=== PATIENT | female | born 1960 | race Caucasian/White ===

== ENCOUNTER → 2016-07-09 | Outpatient (CLI) | payer BC | END | disposition home or self-care (01) | LOC: GMAB 10:15 | PROVIDERS: ATTEND Family Medicine | DX: Z00.00 Encounter for general adult medical examination without abnormal findings (principal) ==

== ENCOUNTER → 2017-03-26 | Outpatient (CLI) | payer BC ==
--- NOTE | 2017-04-07 16:50 | MAM ---
EXAM DESCRIPTION: 3D Screening BILATERAL : Digital Mammography. CLINICAL HISTORY: 57 years Female SCREENING . No complaints. No family history breast cancer. Postmenopausal. Has taken HRT 5 or more years ago. Benign right breast biopsy. COMPARISON: 2-D digital screening bilateral study 10/03/2013. No prior reports available. TECHNIQUE: Bilateral CC and MLO projection full-field images, 3-D tomosynthesis digital mammographic technique. Also bilateral synthesized CC/ MLO full-field images. CAD not utilized. FINDINGS: The breast parenchymal density pattern is: Scattered areas of fibroglandular density. No skin thickening or nipple retraction small solitary microcalcifications bilaterally. Focal asymmetry versus mass density in the periareolar right breast tissue at the 930 clock position abutting the right nipple. No focal, stellate mass or density, focal asymmetry , and no suspicious microcalcifications left breast. IMPRESSION: BI-RADS CATEGORY: 0 - INCOMPLETE- Need additional imaging evaluation. FOLLOW-UP: Recall for additional imagin-D tomosynthesis full field LM imaging of the right breast and targeted right breast ultrasound of the region of interest.. Written communication concerning the IMPRESSION and Follow-up, will be mailed to the patient and referring health care provider. Electronically signed by: Rio Curran MD 04/07/2017 4:49 PM WELDING SUPERVISOR
== END ==
LOC: MAMMO 09:30
PROVIDERS: ATTEND Obstetrics & Gynecology
DX: Z12.31 Encounter for screening mammogram for malignant neoplasm of breast (principal)

== ENCOUNTER → 2017-04-13 | Outpatient (CLI) | payer BC ==
--- NOTE | 2017-04-13 20:41 | US ---
EXAM DESCRIPTION: Breast,Right: Ultrasound CLINICAL HISTORY: 57 yearsFemaleABN MAMMO. Previous biopsy in the same region. Also previous cyst aspiration. COMPARISON: Digital 3-D tomosynthesis diagnostic RIGHT breast on this visit. Previous screening 3-D tomosynthesis bilateral study, 03/26/2017. TECHNIQUE: Transcutaneous scanning of the right breast utilizing two-dimensional and Doppler modes. Scanning performed by the emotional support teacher and Dr. Curran. FINDINGS: Scanning in the upper outer quadrant of the right nipple. Mostly oval shaped lesion with defined margins with echogenic and hypoechoic components. Margins are also partially lobulated. Predominantly echogenic centrally. Posterior edge shadowing with central no posterior features. Parallel orientation. Nonvascular. Dimensions are 10.6 x 10.6 x 5.1 mm. More likely to represent postbiopsy scar or fibrosis, lymph node, or fibroadenoma. IMPRESSION: 1. Bi-Rads Category 3: Probably Benign Findings. 2. Please refer to right breast 3-D tomosynthesis diagnostic mammographic examination and report on this visit. The FINDINGS and the FOLLOW-UP plan were reviewed in person with the patient after the examination. Written communication explaining the IMPRESSION and FOLLOW-UP will be mailed to the patient and referring care provider. Electronically signed by: Rio Curran MD 04/13/2017 8:40 PM RETAIL SALES REPRESENTATIVE Workstation: [id number]
--- NOTE | 2017-04-14 09:08 | MAM ---
EXAM DESCRIPTION: 3D Diagnostic, Right: Digital Mammography CLINICAL HISTORY: 57 yearsFemaleABNORMAL SCREENING mass density in the upper outer quadrant of the right nipple. Previous biopsy and drainage in the same region near the nipple. COMPARISON: 3-D bilateral screening, 19/07/2017.. Report from prior examination also reviewed. TECHNIQUE: Right LM projection full-field images, 3-D tomosynthesis digital mammographic technique. Also right synthesized LM full-field images. CAD not utilized. FINDINGS: Right breast parenchymal density pattern is: Scattered areas of fibroglandular density. No skin thickening or nipple retraction small nodular mass density on the upper outer quadrant of the right nipple similar density to the nipple more dense than the surrounding fatty structures. Approximately 1 cm diameter. Borders are partially well-defined. No calcifications. No skin thickening or nipple retraction. ULTRASOUND: Scanning in the upper outer quadrant of the right nipple. Mostly oval shaped lesion with defined margins with echogenic and hypoechoic components. Margins are also partially lobulated. Predominantly echogenic centrally. Posterior edge shadowing with central no posterior features. Parallel orientation. Nonvascular. Dimensions are 10.6 x 10.6 x 5.1 mm. More likely to represent postbiopsy scar or fibrosis, lymph node, or fibroadenoma. IMPRESSION: BI-RADS CATEGORY: 3 - PROBABLY BENIGN. Management: Short interval (6-month) follow-up ultrasound and continued surveillance digital mammography. The FINDINGS and the FOLLOW-UP plan were reviewed in person with the patient after the examination. Written communication explaining the IMPRESSION and FOLLOW-UP will be mailed to the patient and referring care provider. Electronically signed by: Rio Curran MD 04/14/2017 9:07 AM [facility]
== END ==
LOC: MAMMO 10:09
PROVIDERS: ATTEND Obstetrics & Gynecology
DX: R92.8 Other abnormal and inconclusive findings on diagnostic imaging of breast (principal)
CPT/HCPCS: 76641; 77065; G0279

== ENCOUNTER → 2018-04-08 | Outpatient (CLI) | payer BC ==
--- NOTE | 2018-04-09 15:19 | MAM ---
EXAM DESCRIPTION: 3D Diagnostic, Bilateral: Digital Mammography CLINICAL HISTORY: 58 yearsFemaleABNORMAL MAMMOGRAM . Fatty lump on right breast. No personal or family history of breast cancer. Childbirth. Postmenopausal. No HRT for last 18 months. Prior benign right breast biopsy. Lifetime risk of developing breast cancer (Tyrer-Cuzick model) percentage is 7.1. COMPARISON: Bilateral screening digital breast tomosynthesis 03/26/2017. Targeted right breast ultrasound 04/13/2017. Targeted right breast ultrasound included with this examination.. TECHNIQUE: Bilateral CC LM MLO projection full-field images, digital mammographic tomosynthesis technique. Bilateral 2-D digital full-field MLO images. CAD not utilized. FINDINGS: The breast parenchymal density pattern is: Scattered areas of fibroglandular density. No skin thickening or nipple retraction again seen is nodular density abutting the superior and lateral aspect of the right nipple. 10:00 position. Stable since the prior study. No new focal, stellate mass or density, focal asymmetry , and no suspicious microcalcifications bilaterally. Ultrasound: Subcutaneous partially echogenic and hypoechoic mass at the 10:00 position of the right nipple. Dimensions 1.1 x 1.1 x 0.5 cm. Not vascular. Mixed posterior shadowing and enhancement within shadowing. Stable size since the prior study. No large calcifications. No distinct cysts. No overlying skin changes. No new dominant solid mass. IMPRESSION: Benign exam. BIRAD CATEGORY: 2 BENIGN FINDINGS. RECOMMENDATIONS: FOLLOW UP: Return to routine digital bilateral mammographic screening, one year interval from April 2018 Written communication explaining the IMPRESSION and follow-up, will be mailed to the patient and referring health care provider. According to the [employer], yearly mammograms are recommended starting at age 40 and continuing as long as a woman is in good health. Any breast change noted on a breast self-exam should be reported promptly to the patient's healthcare provider. Breast MRI is recommended for women with an approximately 20-25% or greater lifetime risk of breast cancer, including women with a strong family history of breast or ovarian cancer and women who have been treated for Hodgkin's disease. A negative mammographic report should not delay tissue diagnosis in patients with significant clinical history or physical findings. Extremely dense breast tissue limits the sensitivity of digital mammography. Electronically signed by: Rio Curran MD 04/09/2018 3:17 PM GUIDE CHANGER
--- NOTE | 2018-04-10 16:25 | US ---
EXAM DESCRIPTION: Breast,Right: Ultrasound CLINICAL HISTORY: 58 yearsFemaleABNORMAL MAMMOGRAM COMPARISON: Digital diagnostic tomosynthesis bilateral breasts on this visit. Right breast ultrasound 05/11/2017. TECHNIQUE: Transcutaneous scanning of the right breast utilizing blackburn-scale and Doppler modes. Scanning performed by the [employer] ; observed by Dr. Curran. FINDINGS: Subcutaneous partially echogenic and hypoechoic mass at the 10:00 position of the right nipple. Dimensions 1.1 x 1.1 x 0.5 cm. Not vascular. Mixed posterior shadowing and enhancement within shadowing. Stable size since the prior study. No large calcifications. No distinct cysts. No overlying skin changes. No new dominant solid mass. IMPRESSION: 1. Bi-Rads Category 2: Benign. 2. Please refer to bilateral digital diagnostic tomosynthesis examination and report on this visit. The FINDINGS and the FOLLOW-UP plan were reviewed in person with the patient after the examination. Written communication explaining the IMPRESSION and FOLLOW-UP will be mailed to the patient and referring care provider. Electronically signed by: Rio Curran MD 04/10/2018 4:23 PM [facility]
== END ==
LOC: US 09:54
PROVIDERS: ATTEND Obstetrics & Gynecology
DX: R92.8 Other abnormal and inconclusive findings on diagnostic imaging of breast (principal)
CPT/HCPCS: 76641; 77066; G0279

== ENCOUNTER → 2018-12-01 | Outpatient (CLI) | payer BC | LOC: GMATM 17:13 | PROVIDERS: ATTEND Nurse Practitioner Family | DX: R10.13 Epigastric pain (principal); N39.0 Urinary tract infection, site not specified ==

== ENCOUNTER → 2019-04-20 | Outpatient (CLI) | payer BC ==
--- NOTE | 2019-04-25 15:55 | MAM ---
EXAM DESCRIPTION: 3D Screening BILATERAL : Digital Mammography. CLINICAL HISTORY: 59 years Female SCREENING . No complaints. Fatty cyst on right breast. No personal or family history of breast cancer. Menarche age 12. Childbirth age 19. Menopause age 42. HRT less than 5 years ago.. Lifetime risk of developing breast cancer (Tyrer-Cuzick model)(%): 5.5. COMPARISON: Bilateral screening digital breast tomosynthesis April 2017 with diagnostic right breast tomosynthesis April 2018.. TECHNIQUE: Bilateral CC and MLO projection full-field images, digital tomosynthesis mammographic technique. Bilateral digital 2-D full-field MLO images. CAD available for 2-D images. FINDINGS: The breast parenchymal density pattern is: Scattered areas of fibroglandular density. No skin thickening or nipple retraction. Again noted is some of cutaneous mass abutting the upper outer quadrant of the right nipple, stable appearance. No new focal, stellate mass or density, focal asymmetry , and no suspicious microcalcifications bilaterally. Stable mammograms compared to prior study. IMPRESSION: Benign exam. BIRAD CATEGORY: 2 BENIGN FINDINGS. RECOMMENDATIONS: FOLLOW UP: Routine digital bilateral mammographic screening, one year interval from April 2019. Written communication explaining the IMPRESSION and follow-up, will be mailed to the patient and referring health care provider. According to the [employer], yearly mammograms are recommended starting at age 40 and continuing as long as a woman is in good health. Any breast change noted on a breast self-exam should be reported promptly to the patient's healthcare provider. Breast MRI is recommended for women with an approximately 20-25% or greater lifetime risk of breast cancer, including women with a strong family history of breast or ovarian cancer and women who have been treated for Hodgkin's disease. A negative mammographic report should not delay tissue diagnosis in patients with significant clinical history or physical findings. Extremely dense breast tissue limits the sensitivity of digital mammography. Electronically signed by: Rio Curran MD 04/25/2019 3:53 PM STEEL ENGRAVER
== END ==
LOC: MAMMO 09:30
PROVIDERS: ATTEND Obstetrics & Gynecology
DX: Z12.31 Encounter for screening mammogram for malignant neoplasm of breast (principal)

== ENCOUNTER → 2019-07-12 | Outpatient (CLI) | payer BC | LOC: GMAE 14:50 | PROVIDERS: ATTEND Family Medicine | DX: M06.4 Inflammatory polyarthropathy (principal) ==

== ENCOUNTER → 2019-08-23 | Outpatient (CLI) | payer BC | LOC: GMAE 14:17 | PROVIDERS: ATTEND Family Medicine | DX: M06.4 Inflammatory polyarthropathy (principal) ==

== ENCOUNTER → 2019-11-28 | Outpatient (CLI) | payer BC | LOC: GMAE 14:10 | PROVIDERS: ATTEND Family Medicine | DX: M06.4 Inflammatory polyarthropathy (principal) ==

== ENCOUNTER → 2020-01-09 | Outpatient (CLI) | payer BC | LOC: GMAE 14:37 | PROVIDERS: ATTEND Family Medicine | DX: M06.4 Inflammatory polyarthropathy (principal) ==